=== PATIENT | male | born 1985 | race African-American/Black ===

== ENCOUNTER 2021-09-21 07:52 | Emergency (ER) | payer MEDICAID ==
[~2021-09-21] VITALS: Ht 182.9 cm; Wt 73.0 kg
[2021-09-21 08:07] VITALS: BP 147/94
[2021-09-21] MEDS ORDERED: CARB-274 EACH EAR (08:36)
== END 2021-09-21 08:35 | disposition home or self-care (01) ==
LOC: ER 07:52
DX: H61.22 Impacted cerumen, left ear (principal); Z88.6 Allergy status to analgesic agent
CPT/HCPCS: 69210; 99281; 99284

== ENCOUNTER 2022-04-13 04:34 | Emergency (ER) | payer MEDICAID ==
[~2022-04-13] VITALS: Ht 185.4 cm; Wt 67.0 kg
[~2022-04-13 04:34] MED LIST: CARB-274 EACH EAR
[2022-04-13] MEDS ORDERED: ACETAMINOPHEN 325MG TABLET PO ONE (05:15)
[2022-04-13 05:57] LABS: CLARITY URINE CLEAR (CLEAR); COLOR URINE YELLOW (YELLOW); KETONES URINE NEGATIVE (NEGATIVE); LEUKOCYTE ESTERASE URINE NEGATIVE (NEGATIVE); NITRITE URINE NEGATIVE (NEGATIVE); OCCULT BLOOD URINE NEGATIVE (NEGATIVE); PH URINE 6.5 (4.5-8.0); PROTEIN URINE NEGATIVE (NEGATIVE); SPECIFIC GRAVITY URINE 1.006 (1.005-1.030); UROBILINOGEN URINE 0.2 E.U./dL (0.2-1.0)
[2022-04-13] MEDS ORDERED: CEFTRIAXONE SODIUM 500 MG/VIAL IM ONE (08:00)
[2022-04-13] MEDS ORDERED: DOXYCYCLINE HYCLATE 100MG CAPSULE PO ONE (08:00)
[2022-04-13] MEDS ORDERED: DOXY100C5 PO (08:02)
[2022-04-13] MEDS ORDERED: TOPUD PO (08:04)
[2022-04-13] MEDS ORDERED: CEFTRIAXONE SODIUM 500 MG/VIAL IM NR (08:15)
[2022-04-13] MEDS ORDERED: DOXYCYCLINE HYCLATE 100MG CAPSULE PO NR (08:15)
[2022-04-13 08:45] VITALS: BP 121/71
[2022-04-15 04:09] LABS: NEISSERIA GONORRHOEAE NAA Negative (Negative)
== END 2022-04-13 08:48 | disposition home or self-care (01) ==
LOC: ER 04:34
DX: N45.2 Orchitis (principal); Z88.6 Allergy status to analgesic agent
CPT/HCPCS: 76870; 81003; 87491; 87591; 93976; 96372; 99284; J0696; Z7610

== ENCOUNTER 2022-05-04 07:08 | Emergency (ER) | payer MEDICAID ==
[~2022-05-04] VITALS: Ht 185.4 cm; Wt 66.0 kg
[~2022-05-04 07:08] MED LIST changes: +DOXY100C5 PO; +TOPUD PO
[2022-05-04 10:02] LABS: CLARITY URINE CLEAR (CLEAR); COLOR URINE YELLOW (YELLOW); KETONES URINE NEGATIVE (NEGATIVE); LEUKOCYTE ESTERASE URINE NEGATIVE (NEGATIVE); NITRITE URINE NEGATIVE (NEGATIVE); OCCULT BLOOD URINE NEGATIVE (NEGATIVE); PH URINE 6.5 (4.5-8.0); PROTEIN URINE NEGATIVE (NEGATIVE); SPECIFIC GRAVITY URINE 1.004 (1.005-1.030); UROBILINOGEN URINE 0.2 E.U./dL (0.2-1.0)
[2022-05-04 10:37] VITALS: BP 132/85
== END 2022-05-04 10:44 | disposition home or self-care (01) ==
LOC: ER 07:08
DX: N50.812 Left testicular pain (principal); Z88.6 Allergy status to analgesic agent
CPT/HCPCS: 76870; 81003; 93976; 99284

== ENCOUNTER 2023-12-19 06:27 | Emergency (ER) | payer MEDICAID ==
[~2023-12-19] VITALS: Ht 182.9 cm; Wt 71.0 kg
[2023-12-19 06:33] VITALS: O2SAT 98
[2023-12-19 06:53] LABS: CLARITY URINE CLEAR (CLEAR); COLOR URINE DARK YELLOW (YELLOW); GLUCOSE URINE NEGATIVE (NEGATIVE); KETONES URINE NEGATIVE (NEGATIVE); LEUKOCYTE ESTERASE URINE NEGATIVE (NEGATIVE); NITRITE URINE NEGATIVE (NEGATIVE); OCCULT BLOOD URINE NEGATIVE (NEGATIVE); PROTEIN URINE 1+ (NEGATIVE)
[2023-12-19 07:25] LABS: RBC URINE NONE SEEN /hpf (0-2); WBC URINE NONE SEEN /hpf (0-2)
[2023-12-19 07:26] LABS: BACTERIA URINE TRACE; SQUAMOUS EPITHELIAL CELL URINE FEW /lpf (RARE/1+)
[2023-12-19 08:45] VITALS: TEMP 98
[2023-12-19] MEDS ORDERED: ACETAMINOPHEN 500MG TABLET PO ONE (08:45)
[2023-12-19 09:39] VITALS: BP 125/73; PULSE 79; RESP 16
== END 2023-12-19 09:40 | disposition home or self-care (01) ==
LOC: ER 06:27
DX: N50.812 Left testicular pain (principal); Z88.6 Allergy status to analgesic agent
CPT/HCPCS: 76870; 81003; 93976; 99284

== ENCOUNTER 2024-11-21 15:03 | Emergency (ER) | payer MEDICAID ==
[~2024-11-21] VITALS: Ht 182.9 cm; Wt 74.8 kg
[2024-11-21 15:15] VITALS: BP 135/84; PULSE 70; RESP 16; TEMP 97.9; O2SAT 100
[2024-11-21] MEDS ORDERED: TOPUD MT (19:55)
[2024-11-21] MEDS: ACETAMINOPHEN 325MG TABLET PO ONE (20:29)
== END 2024-11-21 20:30 | disposition home or self-care (01) ==
LOC: ER 15:03
DX: S43.101A Unspecified dislocation of right acromioclavicular joint, initial encounter (principal); Z88.6 Allergy status to analgesic agent; Z79.899 Other long term (current) drug therapy; X58.XXXA Exposure to other specified factors, initial encounter; Y93.89 Activity, other specified; Y92.89 Other specified places as the place of occurrence of the external cause; Y99.8 Other external cause status
CPT/HCPCS: 73030; 99283